=== PATIENT | female | born 1945 | race Caucasian/White ===

== ENCOUNTER → 2017-01-25 | Outpatient (CLI) | payer MEDICARE, MEDICAID ==
[~2017-01-25] MED LIST: AMLO5TAB4 PO; BENADRYL PO; BUDE180A3; CELE200C PO; CYCL5TAB PO; DOCU250C75; FENT1PAT4 TP; FURO20TA4 PO; GUAI120015 PO; HYDR-519; HYDR4TAB23; IPRA21SP2; LACT10SO6 PO; LEVA0.6320; LIDO700A; LIOR10 PO; LISI-604 PO; LORA-249 PO; MONT10TA21 PO; NEURONTIN PO; NICO1PAT15 TP; P20 PO; PANT40TA4 PO; PROAIR; QUET25TA; TIZA4TAB4 PO; ZOVIRAX; [UNRECOGNIZED DRUG - CODE]
== END | disposition home or self-care (01) ==
LOC: MRI 10:29
PROVIDERS: ATTEND Neurological Surgery
DX: M79.662 Pain in left lower leg (principal); M79.661 Pain in right lower leg; Z86.718 Personal history of other venous thrombosis and embolism
CPT/HCPCS: 93970

== ENCOUNTER 2017-04-03 17:50 | Emergency (ER) | payer MEDICARE, MEDICAID ==
[~2017-04-03] VITALS: Ht 162.6 cm; Wt 109.0 kg
[~2017-04-03 17:50] MED LIST changes: +BACL-141 PO; -LIOR10 PO
[2017-04-03] MEDS ORDERED: MORPHINE SULFATE 10 MG/ML CPJ IM ONE (20:00)
[2017-04-03 20:28] LABS: BASOPHILS % 0.7 % (0.0-2.0); EOSINOPHILS % 1.1 % (0.0-5.0); HEMATOCRIT. 36.8 % (36.0-48.0); HEMOGLOBIN. 12.4 g/dL (12.0-16.0); LYMPHOCYTES % 20.9 % (20.0-50.0); MEAN CORPUSCULAR HEMOGLOBIN 32.1 pg (28.0-32.0); MEAN CORPUSCULAR VOLUME 95.3 fL (81.0-99.0); MEAN PLATELET VOLUME 6.9 fl (7.4-10.4); MONOCYTES % 4.2 % (2.0-8.0); NEUTROPHILS % 73.1 % (40.0-76.0); PLATELET 223 x1000/uL (130-400); RED BLOOD CELL COUNT 3.87 mill/uL (4.2-5.4); RED CELL DISTRIBUTION WIDTH 16.8 % (11.6-14.6)
[2017-04-03 20:31] LABS: CHLORIDE 107 mEq/L (98-107)
[2017-04-03 20:35] LABS: PARTIAL THROMBOPLASTIN TIME 33.4 sec (24.0-34.0); PROTHROMBIN TIME 10.9 sec
[2017-04-03 20:38] LABS: CARBON DIOXIDE 30 mEq/L (21-32)
[2017-04-03] MEDS ORDERED: LIDOCAINE HCL 1% 20ML VIAL (Pyxis) INJ INFIL ONE ×2 (22:15→23:30)
[2017-04-03] MEDS ORDERED: POVIDONE-IODINE 10% TOPICAL SOLN 240ML TOP ONE (22:15)
[2017-04-03 23:02] LABS: HEMATOCRIT 35.2 % (36.0-48.0); MEAN CORPUSCULAR HEMOGLOBIN 32.5 pg (28.0-32.0); MEAN CORPUSCULAR VOLUME 95.4 fL (81.0-99.0); PLATELET 209 x1000/uL (130-400); RED BLOOD CELL COUNT 3.68 mill/uL (4.2-5.4); RED CELL DISTRIBUTION WIDTH 16.8 % (11.6-14.6)
[2017-04-03] MEDS ORDERED: LIDOCAINE HCL 1% 20ML VIAL (Pyxis) INJ ONE (23:26)
[2017-04-04] MEDS ORDERED: MORPHINE SULFATE 10 MG/ML CPJ ONE (00:13)
[2017-04-04] MEDS ORDERED: IPRATROPIUM/ALBUTEROL 0.5-3(2.5)MG/3ML NEB HHN ONE (00:30)
[2017-04-04] MEDS ORDERED: MORPHINE SULFATE 10 MG/ML CPJ IM ONE (01:30)
[2017-04-04 07:00] VITALS: BP 125/67
== END 2017-04-04 07:17 | disposition home or self-care (01) ==
LOC: ER 19:16
DX: S81.812A Laceration without foreign body, left lower leg, initial encounter (principal); M19.90 Unspecified osteoarthritis, unspecified site; I10 Essential (primary) hypertension; E89.0 Postprocedural hypothyroidism; M54.30 Sciatica, unspecified side; J44.9 Chronic obstructive pulmonary disease, unspecified; M85.862 Other specified disorders of bone density and structure, left lower leg; W05.0XXA Fall from non-moving wheelchair, initial encounter; W45.8XXA Other foreign body or object entering through skin, initial encounter; Y93.89 Activity, other specified; Y92.128 Other place in nursing home as the place of occurrence of the external cause
CPT/HCPCS: 12004; 36415; 73590; 80048; 85025; 85027; 85610; 85730; 96372; 99285; A4246; J2270; J3490; J7620

== ENCOUNTER → 2017-05-15 | Outpatient (CLI) | payer MEDICARE, MEDICAID ==
[~2017-05-15] MED LIST changes: +DOCU250C14; -DOCU250C75; -HYDR4TAB23; +HYDR4TAB4
== END | disposition home or self-care (01) ==
LOC: RAD 14:43
PROVIDERS: ATTEND Orthopaedic Surgery
DX: M13.852 Other specified arthritis, left hip (principal); M13.851 Other specified arthritis, right hip
CPT/HCPCS: 73521

== ENCOUNTER → 2017-07-03 | Outpatient (CLI) | payer MEDICARE, MEDICAID | END | disposition home or self-care (01) | LOC: RAD 12:17 | PROVIDERS: ATTEND Family Medicine | DX: J44.9 Chronic obstructive pulmonary disease, unspecified (principal); J18.9 Pneumonia, unspecified organism | CPT/HCPCS: 71010 ==

== ENCOUNTER → 2017-10-23 | Outpatient (CLI) | payer MEDICARE, MEDICAID | END | disposition home or self-care (01) | LOC: US 13:17 | PROVIDERS: ATTEND Specialist | DX: M79.605 Pain in left leg (principal); M79.604 Pain in right leg; R60.9 Edema, unspecified | CPT/HCPCS: 93970 ==

== ENCOUNTER 2018-06-19 15:31 | Emergency (ER) | payer MEDICARE, MEDICAID ==
[~2018-06-19] VITALS: Ht 165.1 cm; Wt 76.0 kg
[2018-06-19] MEDS ORDERED: BACITRACIN ZINC OINT UDPKT TOP ONE (17:00)
[2018-06-19] MEDS ORDERED: LIDOCAINE HCL/PF 1% 10 MG/ML 5ML VIAL IJ SCH (17:00)
[2018-06-19] MEDS ORDERED: LIDOCAINE HCL 1% 20ML VIAL (Pyxis) INJ MC ONE (17:00)
[2018-06-19] MEDS ORDERED: TETANUS, DIPHTHERIA, PERTUSSIS VAC/PF 0.5ML (>7YR OLD) IM ONE (17:00)
[2018-06-19] MEDS ORDERED: MORPHINE SULFATE 10 MG/ML CPJ IM ONE (18:00)
[2018-06-19] MEDS ORDERED: CEPHALEXIN 500MG CAPSULE PO ONE (18:00)
[2018-06-19 18:28] LABS: BASOPHILS % 0.4 % (0.0-2.0); CHLORIDE 103 mEq/L (98-107); EOSINOPHILS % 1.5 % (0.0-5.0); HEMATOCRIT. 31.4 % (36.0-48.0); HEMOGLOBIN. 10.6 g/dL (12.0-16.0); LYMPHOCYTES % 32.3 % (20.0-50.0); MEAN CORPUSCULAR HEMOGLOBIN 31.8 pg (28.0-32.0); MEAN PLATELET VOLUME 7.1 fl (7.4-10.4); MONOCYTES % 5.1 % (2.0-8.0); NEUTROPHILS % 60.7 % (40.0-76.0); PLATELET 127 x1000/uL (130-400); RED BLOOD CELL COUNT 3.34 mill/uL (4.2-5.4); RED CELL DISTRIBUTION WIDTH 16.6 % (11.6-14.6)
[2018-06-19 18:29] LABS: PARTIAL THROMBOPLASTIN TIME 29.8 sec (23.4-31.0); PROTHROMBIN TIME 10.5 sec (9.1-11.1)
[2018-06-19 18:45] VITALS: BP 105/65
== END 2018-06-19 19:00 | disposition home or self-care (01) ==
LOC: ER 16:57
DX: S81.812A Laceration without foreign body, left lower leg, initial encounter (principal); D64.9 Anemia, unspecified; J44.9 Chronic obstructive pulmonary disease, unspecified; M54.30 Sciatica, unspecified side; Z92.84 Personal history of unintended awareness under general anesthesia; Z88.1 Allergy status to other antibiotic agents; Z79.899 Other long term (current) drug therapy; Z99.81 Dependence on supplemental oxygen; Z99.3 Dependence on wheelchair; X58.XXXA Exposure to other specified factors, initial encounter; Y93.89 Activity, other specified; Y92.89 Other specified places as the place of occurrence of the external cause; Y99.8 Other external cause status
CPT/HCPCS: 12002; 36415; 80053; 85025; 85610; 85730; 96372; 99284; J2270; J3490; 90715

== ENCOUNTER → 2018-08-27 | Outpatient (CLI) | payer MEDICARE, MEDICAID | END | disposition home or self-care (01) | LOC: US 10:08 | PROVIDERS: ATTEND Specialist | DX: J98.11 Atelectasis (principal); I77.810 Thoracic aortic ectasia; M19.012 Primary osteoarthritis, left shoulder | CPT/HCPCS: 71046; 71100; 93970 ==

== ENCOUNTER 2018-11-26 15:14 | Inpatient (IN) | payer MEDICARE, MEDICAID ==
[~2018-11-26] VITALS: Ht 167.6 cm; Wt 74.8 kg
[~2018-11-26 15:14] MED LIST changes: -DOCU250C14; +DOCU250C14 PO; -HYDR-519; +HYDR-519 PO; -HYDR4TAB4; +HYDR4TAB4 PO; -QUET25TA; +QUET25TA PO
[2018-11-26] MEDS ORDERED: SODIUM CHLORIDE 0.9% 1,000 ML IV ONE (16:15)
[2018-11-26] MEDS ORDERED: ONDANSETRON HCL 4MG/2ML INJ IV ONE (16:30)
[2018-11-26] MEDS ORDERED: LIDOCAINE 1%/EPI 1:100,000 10 ML VIAL IJ ONE (16:30)
[2018-11-26 16:37] LABS: BASOPHILS % 0.6 % (0.0-2.0); EOSINOPHILS % 1.2 % (0.0-5.0); HEMATOCRIT. 29.7 % (36.0-48.0); HEMOGLOBIN. 9.8 g/dL (12.0-16.0); LYMPHOCYTES % 31.4 % (20.0-50.0); MEAN CORPUSCULAR HEMOGLOBIN 32.5 pg (28.0-32.0); MEAN CORPUSCULAR VOLUME 98.8 fL (81.0-99.0); MEAN PLATELET VOLUME 7.9 fl (7.4-10.4); MONOCYTES % 4.8 % (2.0-8.0); PLATELET 209 x1000/uL (130-400); RED BLOOD CELL COUNT 3.01 mill/uL (4.2-5.4); RED CELL DISTRIBUTION WIDTH 17.7 % (11.6-14.6)
[2018-11-26 16:40] LABS: CHLORIDE 101 mEq/L (98-107)
[2018-11-26 16:41] LABS: INR 1.1; PARTIAL THROMBOPLASTIN TIME 29.5 sec (23.4-31.0); PROTHROMBIN TIME 10.6 sec (9.1-11.1)
[2018-11-26] MEDS ORDERED: IPRATROPIUM BROMIDE (0.02%) 0.5MG/2.5ML NEB HHN STA ×2 (16:48→19:54)
[2018-11-26] MEDS ORDERED: ALBUTEROL (0.083%) 2.5MG/3ML NEB HHN STA ×2 (16:48→19:54)
[2018-11-26] MEDS ORDERED: LIDOCAINE HCL/EPINEPHRINE 1%-EPI 1:100,000 20 ML VIAL INFIL ONE (17:30)
[2018-11-26] MEDS ORDERED: PIPERACILLIN/TAZ 3.375G PREMIX 50 ML IV ONE (17:45)
[2018-11-26] MEDS ORDERED: FENTANYL CITRATE/PF 50MCG/ML 2ML VIAL IV ONE (17:45)
[2018-11-26 18:43] LABS: HEMATOCRIT 27.7 % (36.0-48.0); HEMOGLOBIN 8.9 g/dL (12.0-16.0); MEAN CORPUSCULAR HEMOGLOBIN 31.9 pg (28.0-32.0); MEAN CORPUSCULAR VOLUME 99.2 fL (81.0-99.0); PLATELET 182 x1000/uL (130-400); RED CELL DISTRIBUTION WIDTH 17.3 % (11.6-14.6)
[2018-11-26 18:59] LABS: CLARITY URINE CLEAR (CLEAR); COLOR URINE YELLOW (YELLOW); KETONES URINE NEGATIVE (NEGATIVE); LEUKOCYTE ESTERASE URINE NEGATIVE (NEGATIVE); NITRITE URINE NEGATIVE (NEGATIVE); OCCULT BLOOD URINE NEGATIVE (NEGATIVE); PROTEIN URINE NEGATIVE (NEGATIVE); SPECIFIC GRAVITY URINE 1.019 (1.005-1.030)
[2018-11-26] MEDS ORDERED: ALBUTEROL (0.5%) 2.5MG/0.5ML NEB HHN PRN (21:15)
[2018-11-26] MEDS ORDERED: HYDROCODONE/ACETAMINOPHEN 5/325MG TABLET PO PRN (22:45)
[2018-11-26] MEDS ORDERED: ACETAMINOPHEN 325MG TABLET PO PRN (22:45)
[2018-11-26] MEDS ORDERED: HYDROMORPHONE HCL/PF 2MG/ML CPJ IV PRN (22:45)
[2018-11-26] MEDS ORDERED: ONDANSETRON HCL 4MG/2ML INJ IV PRN (22:45)
[2018-11-26] MEDS ORDERED: IPRATROPIUM/ALBUTEROL 0.5-3(2.5)MG/3ML NEB INH PRN (22:45)
[2018-11-27] VITALS (11 sets, daily range): BP systolic 107–134; BP diastolic 57–80
[2018-11-27] MEDS ORDERED: HYDROMORPHONE HCL/PF 2MG/ML CPJ IV NR ×2 (01:15→05:30)
[2018-11-27] MEDS: IPRATROPIUM/ALBUTEROL 0.5-3(2.5)MG/3ML NEB HHN SCH ×5 (02:15→19:47)
[2018-11-27] MEDS: SODIUM CHLORIDE 0.9% 1,000 ML IV SCH ×2 (03:09→15:35)
[2018-11-27 05:04] LABS: BASOPHILS % 0.4 % (0.0-2.0); HEMATOCRIT. 26.3 % (36.0-48.0); HEMOGLOBIN. 8.6 g/dL (12.0-16.0); LYMPHOCYTES % 24.3 % (20.0-50.0); MEAN CORPUSCULAR HEMOGLOBIN 32.5 pg (28.0-32.0); MEAN CORPUSCULAR VOLUME 99.2 fL (81.0-99.0); MEAN PLATELET VOLUME 7.4 fl (7.4-10.4); MONOCYTES % 4.6 % (2.0-8.0); NEUTROPHILS % 69.7 % (40.0-76.0); PLATELET 174 x1000/uL (130-400); RED BLOOD CELL COUNT 2.66 mill/uL (4.2-5.4); RED CELL DISTRIBUTION WIDTH 17.1 % (11.6-14.6)
[2018-11-27 05:16] LABS: CHLORIDE 105 mEq/L (98-107)
[2018-11-27] MEDS: LIOTHYRONINE SODIUM 5MCG TABLET PO SCH ×2 (07:30→07:40)
[2018-11-27] MEDS ORDERED: HYDROMORPHONE HCL/PF 2MG/ML CPJ IV PRN (09:00)
[2018-11-27] MEDS: HYDROMORPHONE HCL/PF 2MG/ML CPJ IV PRN ×3 (10:19→23:01)
[2018-11-27] MEDS ORDERED: VANCOMYCIN 1500MG in DEXTROSE 5% WATER 250ML IV SCH (11:30)
[2018-11-27] MEDS: SERTRALINE HCL 50MG TABLET PO SCH (11:57)
[2018-11-27] MEDS ORDERED: IPRATROPIUM/ALBUTEROL 0.5-3(2.5)MG/3ML NEB HHN SCH (12:00)
[2018-11-27] MEDS ORDERED: LORAZEPAM 0.5MG TABLET PO PRN (12:00)
[2018-11-27] MEDS ORDERED: IPRATROPIUM/ALBUTEROL 0.5-3(2.5)MG/3ML NEB ONE (12:10)
[2018-11-27] MEDS: CAPSAICIN 0.075% CREAM 60GM TOP PRN ×3 (12:18→22:11)
[2018-11-27] MEDS: LIDOCAINE HCL 4% CREAM 76GM TUBE TP PRN ×2 (12:18→22:09)
[2018-11-27] MEDS: QUETIAPINE FUMARATE 25MG TABLET PO SCH ×2 (12:38→21:52)
[2018-11-27] MEDS: GABAPENTIN 300MG CAPSULE PO SCH ×2 (14:00→21:52)
[2018-11-27] MEDS: AMLODIPINE 5MG TABLET PO SCH (14:30)
[2018-11-27] MEDS: BACLOFEN 10MG TABLET PO SCH ×2 (15:16→21:52)
[2018-11-27] MEDS ORDERED: IPRATROPIUM/ALBUTEROL 0.5-3(2.5)MG/3ML NEB INH PRN (15:45)
[2018-11-27] MEDS: MONTELUKAST SODIUM 10MG TABLET PO SCH (16:54)
[2018-11-27] MEDS: CELECOXIB 200MG CAPSULE PO SCH (16:54)
[2018-11-27] MEDS ORDERED: MONTELUKAST SODIUM 10MG TABLET PO SCH ×2 (17:00→21:00)
[2018-11-27] MEDS ORDERED: LACTULOSE 20G/30ML UDC PO PRN (19:45)
[2018-11-27] MEDS ORDERED: TRAZODONE HCL 100MG TABLET PO SCH (21:00)
[2018-11-27] MEDS: TRAZODONE HCL 100MG TABLET PO SCH (21:52)
[2018-11-27] MEDS: LORAZEPAM 1MG TABLET PO PRN (21:52)
[2018-11-27] MEDS: VANCOMYCIN 1 G PREMIX 200 ML IV SCH (21:52)
[2018-11-27] MEDS: HYDROCODONE/ACETAMINOPHEN 5/325MG TABLET PO PRN (22:01)
[2018-11-27] MEDS: SODIUM CHLORIDE 45ML SPRAY NS PRN (22:09)
[2018-11-28] VITALS (12 sets, daily range): BP systolic 79–142; BP diastolic 40–77
[2018-11-28] MEDS: IPRATROPIUM/ALBUTEROL 0.5-3(2.5)MG/3ML NEB HHN SCH ×6 (00:44→20:35)
[2018-11-28] MEDS: BACLOFEN 10MG TABLET PO SCH ×3 (05:25→21:33)
[2018-11-28] MEDS: GABAPENTIN 300MG CAPSULE PO SCH ×3 (05:25→21:33)
[2018-11-28] MEDS: HYDROMORPHONE HCL/PF 2MG/ML CPJ IV PRN ×3 (05:27→20:08)
[2018-11-28] MEDS: CAPSAICIN 0.075% CREAM 60GM TOP PRN ×2 (06:11→20:22)
[2018-11-28] MEDS: LIOTHYRONINE SODIUM 5MCG TABLET PO SCH (07:30)
[2018-11-28] MEDS: VANCOMYCIN 1 G PREMIX 200 ML IV SCH ×2 (08:12→20:10)
[2018-11-28] MEDS: SERTRALINE HCL 50MG TABLET PO SCH (08:13)
[2018-11-28] MEDS: CELECOXIB 200MG CAPSULE PO SCH (08:13)
[2018-11-28] MEDS: PREDNISONE 20MG TABLET PO SCH (08:13)
[2018-11-28] MEDS: QUETIAPINE FUMARATE 25MG TABLET PO SCH ×2 (08:14→20:09)
[2018-11-28] MEDS: AMLODIPINE 5MG TABLET PO SCH (08:14)
[2018-11-28] MEDS: LORAZEPAM 1MG TABLET PO PRN (16:40)
[2018-11-28] MEDS: MONTELUKAST SODIUM 10MG TABLET PO SCH (16:40)
[2018-11-28] MEDS: HYDROCODONE/ACETAMINOPHEN 5/325MG TABLET PO PRN ×2 (16:42→23:51)
[2018-11-28] MEDS: TRAZODONE HCL 100MG TABLET PO SCH (20:09)
[2018-11-28] MEDS: SILVER SULFADIAZINE 1% CREAM 25GM TOP SCH (20:21)
[2018-11-28] MEDS: SODIUM CHLORIDE 45ML SPRAY NS PRN (20:24)
[2018-11-28] MEDS ORDERED: ATORVASTATIN CALCIUM 10MG TABLET PO SCH (21:00)
[2018-11-29] VITALS (13 sets, daily range): BP systolic 83–127; BP diastolic 42–70
[2018-11-29] MEDS: IPRATROPIUM/ALBUTEROL 0.5-3(2.5)MG/3ML NEB HHN SCH ×5 (00:10→17:31)
[2018-11-29] MEDS: HYDROMORPHONE HCL/PF 2MG/ML CPJ IV PRN ×3 (04:32→18:34)
[2018-11-29] MEDS: BACLOFEN 10MG TABLET PO SCH ×2 (05:15→14:09)
[2018-11-29] MEDS: GABAPENTIN 300MG CAPSULE PO SCH ×2 (05:15→14:09)
[2018-11-29] MEDS: CAPSAICIN 0.075% CREAM 60GM TOP PRN (06:53)
[2018-11-29] MEDS: LIDOCAINE HCL 4% CREAM 76GM TUBE TP PRN (06:54)
[2018-11-29] MEDS ORDERED: LIOTHYRONINE SODIUM 5MCG TABLET PO SCH (07:30)
[2018-11-29 07:38] LABS: CHLORIDE 107 mEq/L (98-107)
[2018-11-29] MEDS: CELECOXIB 200MG CAPSULE PO SCH (09:58)
[2018-11-29] MEDS: SERTRALINE HCL 50MG TABLET PO SCH (09:58)
[2018-11-29] MEDS: QUETIAPINE FUMARATE 25MG TABLET PO SCH (09:58)
[2018-11-29] MEDS: PREDNISONE 20MG TABLET PO SCH (09:59)
[2018-11-29] MEDS: AMLODIPINE 5MG TABLET PO SCH (09:59)
[2018-11-29] MEDS: LORAZEPAM 1MG TABLET PO PRN (10:05)
[2018-11-29] MEDS: SILVER SULFADIAZINE 1% CREAM 25GM TOP SCH (10:05)
[2018-11-29] MEDS: VANCOMYCIN 1 G PREMIX 200 ML IV SCH (10:05)
[2018-11-29] MEDS ORDERED: NICOTINE 21MG PATCH TD SCH (11:45)
[2018-11-29] MEDS: HYDROCODONE/ACETAMINOPHEN 5/325MG TABLET PO PRN (14:09)
[2018-11-29] MEDS: MONTELUKAST SODIUM 10MG TABLET PO SCH (18:34)
== END 2018-11-29 19:43 | disposition home or self-care (01) | DRG 315 ==
LOC: ER 15:20 → 5EST 17:15 → EDBEDREQ 17:25 → SUPCPDRO 22:36 → ENRESERV 11-27 07:51 → ER 11-27 08:49
PROVIDERS: ADMIT Hospitalist; ATTEND Hospitalist
PROC: 0HQLXZZ Repair Left Lower Leg Skin, External Approach (ICD-10-PCS; principal; 2018-11-26)
DX: I95.9 Hypotension, unspecified (principal); J96.10 Chronic respiratory failure, unspecified whether with hypoxia or hypercapnia; D75.81 Myelofibrosis; D62 Acute posthemorrhagic anemia; S81.812A Laceration without foreign body, left lower leg, initial encounter; I10 Essential (primary) hypertension; E78.00 Pure hypercholesterolemia, unspecified; F32.9 Major depressive disorder, single episode, unspecified; G89.4 Chronic pain syndrome; M53.3 Sacrococcygeal disorders, not elsewhere classified; G62.9 Polyneuropathy, unspecified; E07.9 Disorder of thyroid, unspecified; E78.5 Hyperlipidemia, unspecified; M13.0 Polyarthritis, unspecified; J44.9 Chronic obstructive pulmonary disease, unspecified; F17.210 Nicotine dependence, cigarettes, uncomplicated; W22.8XXA Striking against or struck by other objects, initial encounter; Z90.710 Acquired absence of both cervix and uterus; Z88.1 Allergy status to other antibiotic agents; Z88.8 Allergy status to other drugs, medicaments and biological substances; Z79.899 Other long term (current) drug therapy; Z99.3 Dependence on wheelchair; Z99.81 Dependence on supplemental oxygen; Y93.89 Activity, other specified; Y92.098 Other place in other non-institutional residence as the place of occurrence of the external cause; Y99.8 Other external cause status
CPT/HCPCS: 12004; 36415; 71045; 73590; 80048; 80202; 83880; 84484; 85027; 86850; 86900; 86920; 93005; 94640; 96365; 96375; 99291; A6261; J1170; J2405; J2543; J3010; J3370; J3490; J7030; J7050; J7060; J7512; J7611; J7620

== ENCOUNTER 2019-02-24 13:13 | Inpatient (IN) | payer MEDICARE, MEDICAID ==
[~2019-02-24] VITALS: Ht 162.6 cm; Wt 78.0 kg
[~2019-02-24 13:13] MED LIST changes: +ETOMIDATE 2MG/ML 10ML VIAL IV ONE; +SUCCINYLCHOLINE CHLORIDE 200MG/10ML IV ONE
[2019-02-24] MEDS ORDERED: METHYLPREDNISOLONE SOD SUCC 125 MG/2 ML VIAL IV STA (13:33)
[2019-02-24] MEDS ORDERED: SODIUM CHLORIDE 0.9% 1,000 ML IV ONE (13:33)
[2019-02-24] MEDS ORDERED: ALBUTEROL (0.083%) 2.5MG/3ML NEB HHN STA (13:33)
[2019-02-24] MEDS ORDERED: IPRATROPIUM BROMIDE (0.02%) 0.5MG/2.5ML NEB HHN STA (13:33)
[2019-02-24] MEDS ORDERED: IPRATROPIUM BROMIDE (0.02%) 0.5MG/2.5ML NEB ONE (13:46)
[2019-02-24] MEDS ORDERED: ALBUTEROL (0.083%) 2.5MG/3ML NEB ONE (13:46)
[2019-02-24 14:16] LABS: BG BASE EXCESS 3.8 mmol/L (-2.0-2.0); BG CARBOXYHEMOGLOBIN 6.3 % (0.5-1.5); BG DEOXYHEMOGLOBIN 2.4 % (0.0-5.0); BG FRACTION INSPIRED OXYGEN 50; BG HCO3 ACT 30.1 mmol/L (22.0-26.0); BG METHEMOGLOBIN 0.2 % (0.0-1.5); BG OXYGEN SATURATION 97.4 % (92.0-98.5); BG OXYHEMOGLOBIN 91.1 % (94.0-97.0); BG PCO2 55.7 mmHg (35.0-45.0); BG PH 7.351 (7.350-7.450); BG PO2 121.7 mmHg (75.0-100.0); BG SAMPLE SITE RIGHT BRACHIAL; BG TOTAL HEMOGLOBIN 8.8 g/dL (12.0-18.0)
[2019-02-24 14:35] LABS: CHLORIDE 105 mEq/L (98-107); HEMATOCRIT. 24.7 % (36.0-48.0); HEMOGLOBIN. 8.3 g/dL (12.0-16.0); MEAN CORPUSCULAR HEMOGLOBIN 33.5 pg (28.0-32.0); MEAN CORPUSCULAR VOLUME 100.2 fL (81.0-99.0); MEAN PLATELET VOLUME 7.8 fl (7.4-10.4); PLATELET 106 x1000/uL (130-400); RED BLOOD CELL COUNT 2.47 mill/uL (4.2-5.4); RED CELL DISTRIBUTION WIDTH 18.5 % (11.6-14.6)
[2019-02-24 14:40] LABS: ETHANOL BLOOD < 10 mg/dL
[2019-02-24] MEDS ORDERED: PIPERACILLIN/TAZ 3.375G PREMIX 50 ML IV ONE (15:15)
[2019-02-24] MEDS ORDERED: VANCOMYCIN 1 G PREMIX 200 ML IV ONE (15:15)
[2019-02-24] MEDS ORDERED: SODIUM CHLORIDE 0.9% 1000ML BAG (SEPSIS BOLUS) IV ONE (15:15)
[2019-02-24 15:18] LABS: PLATELET ESTIMATE SLIGHTLY DECREASED
[2019-02-24] MEDS ORDERED: NALOXONE HCL 1 MG/ML 2ML VIAL ONE (16:09)
[2019-02-24] MEDS ORDERED: NALOXONE HCL 1 MG/ML 2ML VIAL IV ONE (16:15)
[2019-02-24] MEDS ORDERED: ETOMIDATE 2MG/ML 10ML VIAL IV ONE (16:30)
[2019-02-24] MEDS ORDERED: SUCCINYLCHOLINE CHLORIDE 200MG/10ML IV ONE (16:30)
[2019-02-24] MEDS ORDERED: SODIUM CHLORIDE 0.9% IV ONE (16:45)
[2019-02-24] MEDS ORDERED: NALOXONE IV ONE (16:45)
[2019-02-24] MEDS ORDERED: PROPOFOL 10MG/ML 100ML 100 ML IV ONE (16:59)
[2019-02-24] MEDS ORDERED: PROPOFOL 200MG/20ML VIAL IV ONE (17:00)
[2019-02-24] MEDS ORDERED: PROPOFOL 10MG/ML 100ML 100 ML IV SCH (17:15)
[2019-02-24] MEDS ORDERED: MIDAZOLAM HCL 50 MG in DEXTROSE 5% WATER 40 ML IV ONE ×2 (17:15→17:30)
[2019-02-24] MEDS ORDERED: FENTANYL CITRATE/PF 500 MCG in SODIUM CHLORIDE 0.9% 40 ML IV PRN ×3 (17:15→23:30)
[2019-02-24] MEDS ORDERED: MORPHINE SULFATE 4 MG/ML CPJ (NOT FOR IM USE) IV ONE (18:27)
[2019-02-24 18:30] LABS: BG BASE EXCESS 5.8 mmol/L (-2.0-2.0); BG CARBOXYHEMOGLOBIN 2.1 % (0.5-1.5); BG DEOXYHEMOGLOBIN 0.7 % (0.0-5.0); BG FRACTION INSPIRED OXYGEN 100; BG HCO3 ACT 34.3 mmol/L (22.0-26.0); BG METHEMOGLOBIN 0.1 % (0.0-1.5); BG OXYGEN SATURATION 99.3 % (92.0-98.5); BG OXYHEMOGLOBIN 97.1 % (94.0-97.0); BG PCO2 77.9 mmHg (35.0-45.0); BG PH 7.262 (7.350-7.450); BG PO2 293.8 mmHg (75.0-100.0); BG SAMPLE SITE RIGHT BRACHIAL; BG TIDAL VOLUME(mL) 500 mL; BG VENT MODE VENT - A/C; BG VENT RATE 14 set
[2019-02-24 21:25] VITALS: BP_SYST 154; BP_SYST 155; BP_DIAS 64; BP_DIAS 65
[2019-02-24 22:00] VITALS: BP 115/60
[2019-02-24 22:30] VITALS: BP 123/62
[2019-02-24] MEDS ORDERED: MIDAZOLAM HCL 50 MG in DEXTROSE 5% WATER 40 ML IV PRN (22:45)
[2019-02-24 23:00] VITALS: BP 125/68
[2019-02-24 23:30] VITALS: BP 128/65
[2019-02-25] VITALS (81 sets, daily range): BP systolic 82–137; BP diastolic 46–90
[2019-02-25] MEDS ORDERED: PROPOFOL 10MG/ML 100ML 100 ML IV PRN
[2019-02-25] MEDS: PROPOFOL 10MG/ML 100ML 100 ML IV PRN ×5 (01:33→22:24)
[2019-02-25] MEDS: DEXT 5% WATER + KCL 20MEQ/L 1,000 ML IV SCH ×3 (01:34→16:13)
[2019-02-25] MEDS: PIPERACILLIN/TAZ 3.375G PREMIX 50 ML IV SCH ×4 (01:34→20:25)
[2019-02-25] MEDS: MIDAZOLAM HCL 50 MG in DEXTROSE 5% WATER 40 ML IV PRN ×3 (01:53→23:08)
[2019-02-25 06:31] LABS: CHLORIDE 106 mEq/L (98-107)
[2019-02-25] MEDS: FENTANYL CITRATE/PF 500 MCG in SODIUM CHLORIDE 0.9% 40 ML IV PRN (06:59)
[2019-02-25 07:17] LABS: HEMATOCRIT 22.8 % (36.0-48.0); HEMOGLOBIN 7.6 g/dL (12.0-16.0); MEAN CORPUSCULAR HEMOGLOBIN 33.6 pg (28.0-32.0); PLATELET 104 x1000/uL (130-400); RED BLOOD CELL COUNT 2.28 mill/uL (4.2-5.4); RED CELL DISTRIBUTION WIDTH 17.9 % (11.6-14.6)
[2019-02-25] MEDS ORDERED: VANCOMYCIN 1,750 MG in DEXT 5% WATER 500 ML IV SCH (08:00)
[2019-02-25 08:31] LABS: BG BASE EXCESS 5.7 mmol/L (-2.0-2.0); BG CARBOXYHEMOGLOBIN 0.3 % (0.5-1.5); BG DEOXYHEMOGLOBIN 0.7 % (0.0-5.0); BG FRACTION INSPIRED OXYGEN 100; BG HCO3 ACT 32.7 mmol/L (22.0-26.0); BG METHEMOGLOBIN 0.9 % (0.0-1.5); BG OXYGEN SATURATION 99.3 % (92.0-98.5); BG OXYHEMOGLOBIN 98.1 % (94.0-97.0); BG PCO2 62.8 mmHg (35.0-45.0); BG PH 7.334 (7.350-7.450); BG PO2 447.1 mmHg (75.0-100.0); BG SAMPLE SITE RIGHT RADIAL; BG TIDAL VOLUME(mL) 500 mL; BG TOTAL HEMOGLOBIN 8.8 g/dL (12.0-18.0); BG VENT MODE VENT - A/C; BG VENT RATE 14 set
[2019-02-25] MEDS: PANTOPRAZOLE SODIUM 40 MG/VIAL IV SCH (08:34)
[2019-02-25] MEDS ORDERED: IPRATROPIUM/ALBUTEROL 0.5-3(2.5)MG/3ML NEB HHN PRN (09:30)
[2019-02-25] MEDS ORDERED: METHYLPREDNISOLONE SOD SUCC 40 MG/ML VIAL IV SCH (10:00)
[2019-02-25 11:43] LABS: INR 1.1; PROTHROMBIN TIME 11.1 sec (9.6-11.0)
[2019-02-25] MEDS: BUDESONIDE 0.5MG/2ML NEB HHN SCH (12:00)
[2019-02-25] MEDS: IPRATROPIUM/ALBUTEROL 0.5-3(2.5)MG/3ML NEB HHN SCH ×3 (12:00→20:26)
[2019-02-25 12:07] LABS: HEPATITIS B SURFACE ANTIGEN NEGATIVE
[2019-02-25 12:37] LABS: HEPATITIS A AB IGM NEGATIVE (NEGATIVE)
[2019-02-25 12:58] LABS: CLARITY URINE CLEAR (CLEAR); COLOR URINE YELLOW (YELLOW); KETONES URINE NEGATIVE (NEGATIVE); LEUKOCYTE ESTERASE URINE NEGATIVE (NEGATIVE); NITRITE URINE NEGATIVE (NEGATIVE); OCCULT BLOOD URINE TRACE (NEGATIVE); PH URINE 7.5 (4.5-8.0); PROTEIN URINE TRACE (NEGATIVE)
[2019-02-25 13:37] LABS: *AMPHETAMINES SCREEN URINE NEGATIVE (NEGATIVE); *BARBITURATES SCREEN URINE NEGATIVE (NEGATIVE)
[2019-02-25 13:38] LABS: *BENZODIAZEPINES SCREEN URINE PRESUMTIVE POSITIVE (NEGATIVE); *COCAINE SCREEN URINE NEGATIVE (NEGATIVE); METHADONE URINE SCREEN NEGATIVE (NEGATIVE); OPIATES URINE SCREEN PRESUMTIVE POSITIVE (NEGATIVE); PHENCYCLIDINE URINE SCREEN NEGATIVE (NEGATIVE)
[2019-02-25 13:39] LABS: CANNABINOID URINE SCREEN NEGATIVE (NEGATIVE)
[2019-02-25] MEDS: THIAMINE HCL 100MG TABLET PO SCH ×2 (16:13→21:46)
[2019-02-25] MEDS: MONTELUKAST SODIUM 10MG TABLET PO SCH (21:46)
[2019-02-25] MEDS: VANCOMYCIN 1250MG in DEXTROSE 5% WATER 250ML IV SCH (21:46)
[2019-02-26] VITALS (66 sets, daily range): BP systolic 53–151; BP diastolic 32–131
[2019-02-26] MEDS: DEXT 5% WATER + KCL 20MEQ/L 1,000 ML IV SCH ×2 (00:18→10:35)
[2019-02-26] MEDS: BUDESONIDE 0.5MG/2ML NEB HHN SCH ×3 (01:36→20:21)
[2019-02-26] MEDS: IPRATROPIUM/ALBUTEROL 0.5-3(2.5)MG/3ML NEB HHN SCH ×7 (01:36→23:56)
[2019-02-26] MEDS: PROPOFOL 10MG/ML 100ML 100 ML IV PRN ×5 (01:52→19:34)
[2019-02-26] MEDS: PIPERACILLIN/TAZ 3.375G PREMIX 50 ML IV SCH ×4 (01:53→20:31)
[2019-02-26 05:20] LABS: BASOPHILS % 0.4 % (0.0-2.0); EOSINOPHILS % 0.9 % (0.0-5.0); HEMATOCRIT. 23.8 % (36.0-48.0); HEMOGLOBIN. 7.9 g/dL (12.0-16.0); LYMPHOCYTES % 21.8 % (20.0-50.0); MEAN CORPUSCULAR HEMOGLOBIN 33.1 pg (28.0-32.0); MEAN CORPUSCULAR VOLUME 99.9 fL (81.0-99.0); MONOCYTES % 4.3 % (2.0-8.0); NEUTROPHILS % 72.6 % (40.0-76.0); PLATELET 90 x1000/uL (130-400); RED BLOOD CELL COUNT 2.38 mill/uL (4.2-5.4); RED CELL DISTRIBUTION WIDTH 18.2 % (11.6-14.6)
[2019-02-26 05:36] LABS: CHLORIDE 103 mEq/L (98-107)
[2019-02-26 05:41] LABS: PHOSPHORUS 2.4 mg/dL (2.5-4.9)
[2019-02-26 07:59] LABS: BG BASE EXCESS 3.4 mmol/L (-2.0-2.0); BG CARBOXYHEMOGLOBIN 0.4 % (0.5-1.5); BG DEOXYHEMOGLOBIN 4.8 % (0.0-5.0); BG FRACTION INSPIRED OXYGEN 40; BG HCO3 ACT 28.5 mmol/L (22.0-26.0); BG METHEMOGLOBIN 0.3 % (0.0-1.5); BG OXYGEN SATURATION 95.2 % (92.0-98.5); BG OXYHEMOGLOBIN 94.5 % (94.0-97.0); BG PCO2 46.5 mmHg (35.0-45.0); BG PH 7.406 (7.350-7.450); BG PO2 78.3 mmHg (75.0-100.0); BG SAMPLE SITE RIGHT RADIAL; BG TIDAL VOLUME(mL) 500 mL; BG TOTAL HEMOGLOBIN 8.3 g/dL (12.0-18.0); BG VENT MODE VENT - A/C; BG VENT RATE 14 set
[2019-02-26] MEDS: PANTOPRAZOLE SODIUM 40 MG/VIAL IV SCH (08:09)
[2019-02-26] MEDS: THIAMINE HCL 100MG TABLET PO SCH ×2 (08:09→17:12)
[2019-02-26] MEDS: VANCOMYCIN 1250MG in DEXTROSE 5% WATER 250ML IV SCH ×2 (09:13→21:38)
[2019-02-26] MEDS ORDERED: MAGNESIUM OXIDE 400MG TABLET PO NR (09:30)
[2019-02-26] MEDS: QUETIAPINE FUMARATE 25MG TABLET PO SCH ×2 (09:52→20:31)
[2019-02-26] MEDS ORDERED: SODIUM PHOS,M-BASIC-D-BASIC 10 MM in DEXT 5% WATER 246.6667 ML IV NR (11:00)
[2019-02-26] MEDS: FENTANYL CITRATE/PF 500 MCG in SODIUM CHLORIDE 0.9% 40 ML IV PRN ×2 (15:06→22:41)
[2019-02-26] MEDS: MONTELUKAST SODIUM 10MG TABLET PO SCH (20:31)
[2019-02-26] MEDS ORDERED: NOREPINEPHRINE 16 MG in DEXT 5% WATER 234 ML IV PRN (22:30)
[2019-02-27] VITALS (95 sets, daily range): BP systolic 81–152; BP diastolic 36–87
[2019-02-27] MEDS: PROPOFOL 10MG/ML 100ML 100 ML IV PRN ×7 (00:24→21:19)
[2019-02-27] MEDS: PIPERACILLIN/TAZ 3.375G PREMIX 50 ML IV SCH ×4 (02:56→20:37)
[2019-02-27] MEDS: IPRATROPIUM/ALBUTEROL 0.5-3(2.5)MG/3ML NEB HHN SCH ×5 (04:38→21:51)
[2019-02-27] MEDS: FENTANYL CITRATE/PF 500 MCG in SODIUM CHLORIDE 0.9% 40 ML IV PRN ×3 (05:44→22:37)
[2019-02-27 05:49] LABS: BASOPHILS % 0.6 % (0.0-2.0); HEMATOCRIT. 25.9 % (36.0-48.0); HEMOGLOBIN. 8.6 g/dL (12.0-16.0); LYMPHOCYTES % 26.7 % (20.0-50.0); MEAN CORPUSCULAR HEMOGLOBIN 33.2 pg (28.0-32.0); MEAN CORPUSCULAR VOLUME 100.2 fL (81.0-99.0); MEAN PLATELET VOLUME 8.4 fl (7.4-10.4); MONOCYTES % 6.6 % (2.0-8.0); NEUTROPHILS % 64.1 % (40.0-76.0); PLATELET 143 x1000/uL (130-400); RED BLOOD CELL COUNT 2.58 mill/uL (4.2-5.4); RED CELL DISTRIBUTION WIDTH 18.6 % (11.6-14.6)
[2019-02-27 06:37] LABS: CHLORIDE 108 mEq/L (98-107)
[2019-02-27 07:16] LABS: IMMUNOGLOBULIN A 148 mg/dL (64-422); IMMUNOGLOBULIN G 781 mg/dL (700-1600); IMMUNOGLOBULIN M 36 mg/dL (26-217)
[2019-02-27] MEDS: PANTOPRAZOLE SODIUM 40 MG/VIAL IV SCH (08:05)
[2019-02-27] MEDS: QUETIAPINE FUMARATE 25MG TABLET PO SCH (08:05)
[2019-02-27] MEDS: THIAMINE HCL 100MG TABLET PO SCH ×2 (08:05→16:30)
[2019-02-27 08:43] LABS: BG BASE EXCESS 4.8 mmol/L (-2.0-2.0); BG CARBOXYHEMOGLOBIN 0.3 % (0.5-1.5); BG DEOXYHEMOGLOBIN 3.4 % (0.0-5.0); BG FRACTION INSPIRED OXYGEN 40; BG HCO3 ACT 29.7 mmol/L (22.0-26.0); BG METHEMOGLOBIN 0.4 % (0.0-1.5); BG OXYGEN SATURATION 96.6 % (92.0-98.5); BG OXYHEMOGLOBIN 95.9 % (94.0-97.0); BG PCO2 46.3 mmHg (35.0-45.0); BG PH 7.425 (7.350-7.450); BG PO2 93.5 mmHg (75.0-100.0); BG SAMPLE SITE RIGHT RADIAL; BG TIDAL VOLUME(mL) 500 mL; BG TOTAL HEMOGLOBIN 8.1 g/dL (12.0-18.0); BG VENT MODE VENT - A/C; BG VENT RATE 14 set
[2019-02-27] MEDS: BUDESONIDE 0.5MG/2ML NEB HHN SCH ×2 (08:54→21:52)
[2019-02-27] MEDS ORDERED: QUETIAPINE FUMARATE 25MG TABLET PO NR (09:45)
[2019-02-27] MEDS: RISPERIDONE 1MG TABLET PO SCH ×2 (10:27→20:36)
[2019-02-27] MEDS ORDERED: FENTANYL 25MCG/HR PATCH TOP SCH (11:00)
[2019-02-27] MEDS: VANCOMYCIN 1 G PREMIX 200 ML IV SCH (14:15)
[2019-02-27] MEDS: MONTELUKAST SODIUM 10MG TABLET PO SCH (20:36)
[2019-02-27] MEDS ORDERED: QUETIAPINE FUMARATE 25MG TABLET PO SCH (21:00)
[2019-02-27] MEDS ORDERED: RISPERIDONE 1MG TABLET PO SCH (21:00)
[2019-02-28] VITALS (95 sets, daily range): BP systolic 49–202; BP diastolic 23–120
[2019-02-28] MEDS: IPRATROPIUM/ALBUTEROL 0.5-3(2.5)MG/3ML NEB HHN SCH ×6 (00:40→20:32)
[2019-02-28] MEDS: PROPOFOL 10MG/ML 100ML 100 ML IV PRN ×2 (01:19→05:10)
[2019-02-28] MEDS ORDERED: FENTANYL CITRATE/PF 1,000 MCG in SODIUM CHLORIDE 0.9% 80 ML IV PRN (01:31)
[2019-02-28] MEDS: PIPERACILLIN/TAZ 3.375G PREMIX 50 ML IV SCH ×4 (02:07→21:06)
[2019-02-28] MEDS: VANCOMYCIN 1 G PREMIX 200 ML IV SCH ×2 (02:43→15:10)
[2019-02-28 05:49] LABS: CHLORIDE 108 mEq/L (98-107)
[2019-02-28 06:01] LABS: BASOPHILS % 0.9 % (0.0-2.0); EOSINOPHILS % 3.7 % (0.0-5.0); HEMATOCRIT. 23.9 % (36.0-48.0); HEMOGLOBIN. 8.1 g/dL (12.0-16.0); LYMPHOCYTES % 32.3 % (20.0-50.0); MEAN CORPUSCULAR HEMOGLOBIN 33.5 pg (28.0-32.0); MEAN CORPUSCULAR VOLUME 99.1 fL (81.0-99.0); MEAN PLATELET VOLUME 8.4 fl (7.4-10.4); MONOCYTES % 6.4 % (2.0-8.0); NEUTROPHILS % 56.7 % (40.0-76.0); PLATELET 137 x1000/uL (130-400); RED BLOOD CELL COUNT 2.41 mill/uL (4.2-5.4); RED CELL DISTRIBUTION WIDTH 18.8 % (11.6-14.6)
[2019-02-28] MEDS ORDERED: LACTULOSE 20G/30ML UDC PO PRN (08:00)
[2019-02-28] MEDS ORDERED: LACTULOSE 20G/30ML UDC PO SCH (08:00)
[2019-02-28 08:13] LABS: BG BASE EXCESS 3.7 mmol/L (-2.0-2.0); BG CARBOXYHEMOGLOBIN 0.5 % (0.5-1.5); BG DEOXYHEMOGLOBIN 3.7 % (0.0-5.0); BG FRACTION INSPIRED OXYGEN 40; BG HCO3 ACT 29.2 mmol/L (22.0-26.0); BG METHEMOGLOBIN 0.3 % (0.0-1.5); BG OXYGEN SATURATION 96.3 % (92.0-98.5); BG OXYHEMOGLOBIN 95.5 % (94.0-97.0); BG PCO2 49.3 mmHg (35.0-45.0); BG PH 7.391 (7.350-7.450); BG PO2 95.5 mmHg (75.0-100.0); BG SAMPLE SITE RIGHT RADIAL; BG TIDAL VOLUME(mL) 500 mL; BG TOTAL HEMOGLOBIN 8.8 g/dL (12.0-18.0); BG VENT MODE VENT - A/C; BG VENT RATE 14 set
[2019-02-28] MEDS: PANTOPRAZOLE SODIUM 40 MG/VIAL IV SCH (09:15)
[2019-02-28] MEDS: DOCUSATE SODIUM 250MG CAPSULE PO SCH (09:15)
[2019-02-28] MEDS: THIAMINE HCL 100MG TABLET PO SCH ×2 (09:15→17:00)
[2019-02-28] MEDS: RISPERIDONE 1MG TABLET PO SCH ×2 (09:15→21:06)
[2019-02-28 09:47] LABS: BG BASE EXCESS 3.2 mmol/L (-2.0-2.0); BG CARBOXYHEMOGLOBIN 0.1 % (0.5-1.5); BG DEOXYHEMOGLOBIN 5.7 % (0.0-5.0); BG HCO3 ACT 27.3 mmol/L (22.0-26.0); BG METHEMOGLOBIN 0.7 % (0.0-1.5); BG OXYGEN SATURATION 94.3 % (92.0-98.5); BG OXYHEMOGLOBIN 93.5 % (94.0-97.0); BG PCO2 39.7 mmHg (35.0-45.0); BG PH 7.455 (7.350-7.450); BG PO2 75.9 mmHg (75.0-100.0); BG SAMPLE SITE RIGHT BRACHIAL; BG TIDAL VOLUME(mL) 500 mL; BG TOTAL HEMOGLOBIN 8.6 g/dL (12.0-18.0); BG VENT MODE VENT - A/C; BG VENT RATE 14 set
[2019-02-28] MEDS ORDERED: RACEPINEPHRINE 2.25% 0.5ML NEB VIAL HHN PRN (11:30)
[2019-02-28] MEDS ORDERED: METHYLPREDNISOLONE SOD SUCC 125 MG/2 ML VIAL IV NR (11:30)
[2019-02-28] MEDS: FENTANYL 75MCG/HR PATCH TOP SCH (12:05)
[2019-02-28] MEDS ORDERED: NICOTINE 21MG PATCH TD ONE (15:00)
[2019-02-28] MEDS: LORAZEPAM 2MG/ML CPJ IV PRN (15:10)
[2019-02-28] MEDS ORDERED: NICOTINE 21MG PATCH TD NR (15:15)
[2019-02-28] MEDS: MONTELUKAST SODIUM 10MG TABLET PO SCH (21:06)
[2019-03-01] VITALS (58 sets, daily range): BP systolic 89–164; BP diastolic 39–107
[2019-03-01] MEDS: IPRATROPIUM/ALBUTEROL 0.5-3(2.5)MG/3ML NEB HHN SCH ×5 (00:39→17:27)
[2019-03-01] MEDS: HYDROCODONE/ACETAMINOPHEN 5/325MG TABLET PO PRN ×2 (01:31→15:52)
[2019-03-01] MEDS: PIPERACILLIN/TAZ 3.375G PREMIX 50 ML IV SCH ×4 (02:51→20:59)
[2019-03-01] MEDS: VANCOMYCIN 1 G PREMIX 200 ML IV SCH ×2 (02:52→13:28)
[2019-03-01] MEDS: DOCUSATE SODIUM 250MG CAPSULE PO SCH (09:11)
[2019-03-01] MEDS: RISPERIDONE 1MG TABLET PO SCH ×2 (09:11→20:12)
[2019-03-01] MEDS: PANTOPRAZOLE SODIUM 40 MG/VIAL IV SCH (09:11)
[2019-03-01] MEDS: THIAMINE HCL 100MG TABLET PO SCH ×2 (09:12→18:15)
[2019-03-01] MEDS: NICOTINE 21MG PATCH TD SCH (09:13)
[2019-03-01] MEDS ORDERED: ZOLPIDEM TARTRATE 5MG TABLET PO PRN (09:45)
[2019-03-01] MEDS ORDERED: SODIUM CHLORIDE 45ML SPRAY NS PRN (09:45)
[2019-03-01] MEDS: LIDOCAINE 5% PATCH TOP SCH (11:56)
[2019-03-01] MEDS: DICLOFENAC SODIUM 75MG DR (EC) TABLET PO SCH ×2 (11:56→20:12)
[2019-03-01 14:21] LABS: HEMATOCRIT 23.1 % (36.0-48.0); HEMOGLOBIN 7.6 g/dL (12.0-16.0); MEAN CORPUSCULAR HEMOGLOBIN 33.1 pg (28.0-32.0); MEAN CORPUSCULAR VOLUME 101.2 fL (81.0-99.0); PLATELET 107 x1000/uL (130-400); RED BLOOD CELL COUNT 2.28 mill/uL (4.2-5.4)
[2019-03-01 14:35] LABS: CHLORIDE 109 mEq/L (98-107)
[2019-03-01] MEDS: MONTELUKAST SODIUM 10MG TABLET PO SCH (20:12)
[2019-03-02] VITALS (11 sets, daily range): BP systolic 104–130; BP diastolic 52–103
[2019-03-02] MEDS: HYDROCODONE/ACETAMINOPHEN 5/325MG TABLET PO PRN (00:51)
[2019-03-02] MEDS: PIPERACILLIN/TAZ 3.375G PREMIX 50 ML IV SCH ×4 (01:08→20:55)
[2019-03-02] MEDS: VANCOMYCIN 1 G PREMIX 200 ML IV SCH ×2 (01:08→14:25)
[2019-03-02 06:06] LABS: BASOPHILS % 0.7 % (0.0-2.0); EOSINOPHILS % 2.9 % (0.0-5.0); HEMATOCRIT. 22.9 % (36.0-48.0); HEMOGLOBIN. 7.5 g/dL (12.0-16.0); LYMPHOCYTES % 34.7 % (20.0-50.0); MEAN CORPUSCULAR VOLUME 100.4 fL (81.0-99.0); MEAN PLATELET VOLUME 7.9 fl (7.4-10.4); MONOCYTES % 4.7 % (2.0-8.0); PLATELET 113 x1000/uL (130-400); RED BLOOD CELL COUNT 2.28 mill/uL (4.2-5.4); RED CELL DISTRIBUTION WIDTH 18.1 % (11.6-14.6)
[2019-03-02 06:42] LABS: CHLORIDE 110 mEq/L (98-107)
[2019-03-02] MEDS: IPRATROPIUM/ALBUTEROL 0.5-3(2.5)MG/3ML NEB HHN SCH ×4 (08:01→21:14)
[2019-03-02] MEDS: NICOTINE 21MG PATCH TD SCH (09:00)
[2019-03-02] MEDS: DOCUSATE SODIUM 250MG CAPSULE PO SCH (09:35)
[2019-03-02] MEDS: PANTOPRAZOLE SODIUM 40 MG/VIAL IV SCH (09:35)
[2019-03-02] MEDS: THIAMINE HCL 100MG TABLET PO SCH ×2 (09:36→18:22)
[2019-03-02] MEDS: DICLOFENAC SODIUM 75MG DR (EC) TABLET PO SCH ×2 (09:36→20:55)
[2019-03-02] MEDS: RISPERIDONE 1MG TABLET PO SCH ×2 (09:56→20:55)
[2019-03-02] MEDS ORDERED: POTASSIUM CHLORIDE 20MEQ TABLET SR PO SCH (12:30)
[2019-03-02] MEDS ORDERED: HYDROCODONE/ACETAMINOPHEN 5/325MG TABLET PO PRN (13:30)
[2019-03-02] MEDS: LORAZEPAM 2MG/ML CPJ IV PRN (14:10)
[2019-03-02] MEDS: LIDOCAINE 5% PATCH TOP SCH (14:24)
[2019-03-02] MEDS ORDERED: VANCOMYCIN 750 MG PREMIX 150 ML IV SCH (16:00)
[2019-03-02] MEDS: MONTELUKAST SODIUM 10MG TABLET PO SCH (20:55)
[2019-03-02] MEDS ORDERED: TRAZODONE HCL 100MG TABLET PO SCH (21:00)
[2019-03-02] MEDS: VANCOMYCIN 750 MG PREMIX 150 ML IV SCH (21:11)
[2019-03-03] VITALS: BP 105/56
[2019-03-03] MEDS: IPRATROPIUM/ALBUTEROL 0.5-3(2.5)MG/3ML NEB HHN SCH ×4 (00:39→12:08)
[2019-03-03 02:00] VITALS: BP 110/60
[2019-03-03] MEDS: PIPERACILLIN/TAZ 3.375G PREMIX 50 ML IV SCH (02:25)
[2019-03-03] MEDS: LORAZEPAM 2MG/ML CPJ IV PRN (03:23)
[2019-03-03 04:00] VITALS: BP 111/59
[2019-03-03] MEDS: VANCOMYCIN 750 MG PREMIX 150 ML IV SCH (05:05)
[2019-03-03 08:32] VITALS: BP 118/57
[2019-03-03] MEDS: DOCUSATE SODIUM 250MG CAPSULE PO SCH (09:00)
[2019-03-03] MEDS: LIDOCAINE 5% PATCH TOP SCH (09:00)
[2019-03-03] MEDS: PANTOPRAZOLE SODIUM 40 MG/VIAL IV SCH (09:57)
[2019-03-03] MEDS: THIAMINE HCL 100MG TABLET PO SCH (09:57)
[2019-03-03] MEDS: DICLOFENAC SODIUM 75MG DR (EC) TABLET PO SCH (09:57)
[2019-03-03] MEDS: NICOTINE 21MG PATCH TD SCH (09:57)
[2019-03-03] MEDS: RISPERIDONE 1MG TABLET PO SCH (09:57)
[2019-03-03 10:13] LABS: BASOPHILS % 0.8 % (0.0-2.0); EOSINOPHILS % 2.4 % (0.0-5.0); HEMATOCRIT. 25.9 % (36.0-48.0); HEMOGLOBIN. 8.6 g/dL (12.0-16.0); LYMPHOCYTES % 29.7 % (20.0-50.0); MEAN CORPUSCULAR HEMOGLOBIN 33.5 pg (28.0-32.0); MEAN CORPUSCULAR VOLUME 100.3 fL (81.0-99.0); MEAN PLATELET VOLUME 8.2 fl (7.4-10.4); MONOCYTES % 5.9 % (2.0-8.0); NEUTROPHILS % 61.2 % (40.0-76.0); PLATELET 128 x1000/uL (130-400); RED BLOOD CELL COUNT 2.58 mill/uL (4.2-5.4); RED CELL DISTRIBUTION WIDTH 17.9 % (11.6-14.6)
[2019-03-03 10:26] LABS: CHLORIDE 110 mEq/L (98-107)
[2019-03-03 12:04] VITALS: BP 118/64
[2019-03-03] MEDS: FENTANYL 75MCG/HR PATCH TOP SCH (12:52)
[2019-03-03 16:17] VITALS: BP 125/63
[2019-03-03] MEDS ORDERED: FLUT1DIS3 INH (17:51)
[2019-03-03] MEDS ORDERED: ALBU6.7H9 INH (17:53)
[2019-03-03] MEDS ORDERED: TRAZ-213 MT (17:54)
[2019-03-03] MEDS ORDERED: VANCOMYCIN 1 G PREMIX 200 ML IV SCH (18:00)
== END 2019-03-03 17:53 | disposition home or self-care (01) | DRG 871 ==
LOC: ER 13:17 → MICUSO 16:22 → EDBEDREQ 16:27 → EDBEDREQSVC 16:27 → ENRESERV 18:27 → 5EST 03-01 15:41 → 7WST 03-03 02:59
PROVIDERS: ADMIT Internal Medicine; ATTEND Internal Medicine
PROC: 5A1945Z Respiratory Ventilation, 24-96 Consecutive Hours (ICD-10-PCS; principal; 2019-02-24)
PROC: 0BH17EZ Insertion of Endotracheal Airway into Trachea, Via Natural or Artificial Opening (ICD-10-PCS; 2019-02-24)
PROC: 06HY33Z Insertion of Infusion Device into Lower Vein, Percutaneous Approach (ICD-10-PCS; 2019-02-24)
PROC: B54BZZA Ultrasonography of Right Lower Extremity Veins, Guidance (ICD-10-PCS; 2019-02-24)
PROC: 4A00X4Z Measurement of Central Nervous Electrical Activity, External Approach (ICD-10-PCS; 2019-02-25)
DX: A41.9 Sepsis, unspecified organism (principal); J96.22 Acute and chronic respiratory failure with hypercapnia; G92 Toxic encephalopathy; J69.0 Pneumonitis due to inhalation of food and vomit; J15.1 Pneumonia due to Pseudomonas; J96.21 Acute and chronic respiratory failure with hypoxia; E44.1 Mild protein-calorie malnutrition; J44.1 Chronic obstructive pulmonary disease with (acute) exacerbation; D61.818 Other pancytopenia; J44.0 Chronic obstructive pulmonary disease with (acute) lower respiratory infection; J98.11 Atelectasis; T40.2X1A Poisoning by other opioids, accidental (unintentional), initial encounter; R65.20 Severe sepsis without septic shock; I10 Essential (primary) hypertension; G62.9 Polyneuropathy, unspecified; E78.5 Hyperlipidemia, unspecified; D63.8 Anemia in other chronic diseases classified elsewhere; D75.89 Other specified diseases of blood and blood-forming organs; E78.00 Pure hypercholesterolemia, unspecified; F32.9 Major depressive disorder, single episode, unspecified; F03.90 Unspecified dementia, unspecified severity, without behavioral disturbance, psychotic disturbance, mood disturbance, and anxiety; F41.9 Anxiety disorder, unspecified; G89.4 Chronic pain syndrome; I25.10 Atherosclerotic heart disease of native coronary artery without angina pectoris; K21.9 Gastro-esophageal reflux disease without esophagitis; L89.90 Pressure ulcer of unspecified site, unspecified stage; R13.10 Dysphagia, unspecified; L89.159 Pressure ulcer of sacral region, unspecified stage; Z78.1 Physical restraint status; Z88.1 Allergy status to other antibiotic agents; Z90.710 Acquired absence of both cervix and uterus; Y92.89 Other specified places as the place of occurrence of the external cause; Z68.29 Body mass index [BMI] 29.0-29.9, adult; Z88.8 Allergy status to other drugs, medicaments and biological substances; Z79.899 Other long term (current) drug therapy; Z79.1 Long term (current) use of non-steroidal anti-inflammatories (NSAID)
CPT/HCPCS: 36415; 36600; 71045; 80048; 80202; 80305; 80320; 82140; 82375; 82784; 82805; 83605; 83735; 83880; 84100; 84134; 84145; 84478; 84484; 85027; 86334; 86705; 86709; 86803; 87070; 87077; 87186; 87340; 92610; 93005; 93970; 94640; 96365; 96375; 97162; 97166; 99291; C9113; J0330; J2060; J2250; J2270; J2310; J2543; J2704; J2930; J3010; J3370; J3490; J7030; J7040; J7050; J7060; J7611; J7620; J7626; G0480

== ENCOUNTER 2019-04-22 14:15 | Emergency (ER) | payer MEDICARE, MEDICAID ==
[~2019-04-22] VITALS: Ht 165.1 cm; Wt 80.0 kg
[~2019-04-22 14:15] MED LIST changes: +ALBU6.7H9 INH; -ETOMIDATE 2MG/ML 10ML VIAL IV ONE; +FLUT1DIS3 INH; -PROAIR; -SUCCINYLCHOLINE CHLORIDE 200MG/10ML IV ONE; +TRAZ-213 MT; -ZOVIRAX
[2019-04-22] MEDS ORDERED: METHYLPREDNISOLONE SOD SUCC 125 MG/2 ML VIAL IV STA (14:42)
[2019-04-22] MEDS ORDERED: ALBUTEROL (0.083%) 2.5MG/3ML NEB HHN STA (14:42)
[2019-04-22] MEDS ORDERED: IPRATROPIUM BROMIDE (0.02%) 0.5MG/2.5ML NEB HHN STA (14:42)
[2019-04-22] MEDS ORDERED: ALBUTEROL (0.083%) 2.5MG/3ML NEB ONE (14:57)
[2019-04-22] MEDS ORDERED: ASPIRIN 81MG TABLET PO ONE (15:00)
[2019-04-22] MEDS ORDERED: HYDROCODONE/ACETAMINOPHEN 5/325MG TABLET PO ONE (15:00)
[2019-04-22 15:07] LABS: HEMATOCRIT. 27.5 % (36.0-48.0); HEMOGLOBIN. 9.3 g/dL (12.0-16.0); MEAN CORPUSCULAR HEMOGLOBIN 34.9 pg (28.0-32.0); MEAN CORPUSCULAR VOLUME 103.4 fL (81.0-99.0); MEAN PLATELET VOLUME 7.5 fl (7.4-10.4); PLATELET 172 x1000/uL (130-400); RED BLOOD CELL COUNT 2.66 mill/uL (4.2-5.4); RED CELL DISTRIBUTION WIDTH 18.7 % (11.6-14.6)
[2019-04-22 15:14] LABS: PROTHROMBIN TIME 10.2 sec (9.6-11.0)
[2019-04-22 15:17] LABS: CHLORIDE 103 mEq/L (98-107)
[2019-04-22 15:20] VITALS: BP 147/89
[2019-04-22 15:48] LABS: PLATELET ESTIMATE NORMAL
== END 2019-04-22 15:26 | disposition left against medical advice (07) ==
LOC: ER 14:15
DX: J44.1 Chronic obstructive pulmonary disease with (acute) exacerbation (principal); R09.02 Hypoxemia; G89.29 Other chronic pain; E78.00 Pure hypercholesterolemia, unspecified; M19.90 Unspecified osteoarthritis, unspecified site; M54.30 Sciatica, unspecified side; D64.9 Anemia, unspecified; K21.9 Gastro-esophageal reflux disease without esophagitis; F41.9 Anxiety disorder, unspecified; Z90.49 Acquired absence of other specified parts of digestive tract; Z90.710 Acquired absence of both cervix and uterus; D72.819 Decreased white blood cell count, unspecified; Z86.11 Personal history of tuberculosis; Z88.8 Allergy status to other drugs, medicaments and biological substances; Z79.899 Other long term (current) drug therapy
CPT/HCPCS: 36415; 71045; 83880; 84484; 99284; J7611